=== PATIENT | female | born 1980 | race Caucasian/White ===

== ENCOUNTER 2018-10-03 18:30 | Inpatient (IN) | payer MEDICAID, OTHER ==
[~2018-10-03] VITALS: Ht 165.1 cm; Wt 100.8 kg
[2018-10-03 19:26] LABS: Basophils # (auto) 0.1 uL; Basophils % (auto) 0.6 % (0.0-2.0); Eosinophils # (auto) 0.1 uL; Eosinophils % (auto) 1.4 % (0.0-7.0); Hematocrit 37.7 % (36.0-46.0); Hemoglobin 12.6 g/dL (12.2-16.2); Lymphocytes # (auto) 1.7 uL; Lymphocytes % (auto) 18.9 % (10.0-50.0); Mean Corpuscular Hgb Conc. 33.5 g/dL (32.0-36.0); Mean Corpuscular Volume 89.6 fL (80.0-100.0); Monocytes # (auto) 0.6 uL; Monocytes % (auto) 6.8 % (0.0-12.0); Neutrophils # (auto) 6.6 uL; Neutrophils % (auto) 72.3 % (37.0-80.0); Platelet Count (auto) 353 10^3/uL (140-450); Red Cell Distribution Width 14.1 % (11.8-14.3); White Blood Cell 9.1 10^3/uL (4.4-10.8)
[2018-10-03 19:32] LABS: Urine Bacteria FEW /hpf (None Seen); Urine Blood Negative /uL (Negative); Urine Specific Gravity 1.007 (1.001-1.035); Urine WBC <1 /hpf (0 - 5)
[2018-10-03 19:38] LABS: INR 0.9 (0.9-1.15); Partial Thromboplastin Time 24.1 sec (23.78-33.04); Prothrombin Time 9.7 sec (9.27-12.13)
[2018-10-03 19:42] LABS: Alanine Aminotransferase 28 U/L (13-56); Albumin 3.7 g/dL (3.4-5.0); Anion Gap 3 (5-15); Aspartate Aminotransferase 39 U/L (15-37); BUN/Creatinine Ratio 12.3; Blood Urea Nitrogen 8 mg/dL (7-18); Calcium 8.7 mg/dL (8.5-10.1); Carbon Dioxide 28 mmol/L (21-32); Chloride 103 mmol/L (98-107); GFR African American 130 mL/min; GFR Non-African American 107 mL/min; Glucose 114 mg/dL (74-106); Potassium 3.6 mmol/L (3.5-5.1); Sodium 134 mmol/L (136-145)
[2018-10-03 19:47] LABS: Alkaline Phosphatase 99 U/L (45-117); Bilirubin, Total 0.3 mg/dL (0.2-1.0); Total Protein 7.9 g/dL (6.4-8.2)
[2018-10-03] MEDS ORDERED: HYDROmorphone HCL 2 MG/ML VL IV ONE (21:00)
[2018-10-03] MEDS ORDERED: ONDANSETRON HCL 4 MG/2 ML VIAL IV ONE (21:00)
[2018-10-04] MEDS ORDERED: ONDANSETRON HCL 4 MG/2 ML VIAL IV PRN (01:15)
[2018-10-04] MEDS ORDERED: ACETAMINOPHEN 325 MG TAB PO PRN (01:15)
[2018-10-04 02:28] VITALS: BP 161/88
--- NOTE | 2018-10-04 02:32 | NUR ---
MS admit from ER RADHA AVALOS admitted to tele/MS without report. Patient oriented to Sharmin Martinez, primary RN, unit, room, bed, and unit policies regarding patient care and visiting hours. Patient weighed by bedscale and encouraged to call if they need something. All questions and concerns addressed, patient verbalized understanding. Bed in lowest position and call light is within reach.
[2018-10-04] MEDS: HYDROcodone-ACET 5/325MG TAB PO PRN (03:03)
[2018-10-04 03:19] VITALS: BP 161/88
[2018-10-04 04:52] VITALS: BP 123/83
--- NOTE | 2018-10-04 07:31 | NUR ---
Closing Shift Note: Endorsed care to day nurse. Patient stable at this time. no s/s distress or sob.
--- NOTE | 2018-10-04 08:00 | NUR ---
ASSESSMENT NOTE PT IS ALERT ORIENTED X4, RESTING IN BED COMFORTABLY, NO DISTRESS NOTED, SELF REPOSITION, ABLE TO VERBALIS HER DEMANDS, CALL LIGHT WITHIN REACH.
--- NOTE | 2018-10-04 08:30 | NUR ---
OUT TO RADIOLOGY VIA WHEELCHAIR TO NUCLEAR MED HIDA SCAN, PT IS ALERT ORIENTED X4
[2018-10-04 09:00] VITALS: BP 108/42
--- NOTE | 2018-10-04 09:40 | NUR ---
PT IS BACK TO BED IN ORDER TO GET MORPHINE IV FOR ACHING ABDOMEN PAIN.
[2018-10-04] MEDS: cefTRIAXone 1GM/50ML D5W 50 ML IV SCH (09:50)
[2018-10-04] MEDS: MORPHINE SULFATE 4 MG/ML SYR/VIAL IV PRN ×2 (09:50→19:53)
--- NOTE | 2018-10-04 10:25 | NUR ---
PT IS OUT AGAIN TO RADIOLOGY, NO DISTRESS NOTED.
--- NOTE | 2018-10-04 10:44 | NUR ---
PT IS BACK TO HER ROOM, NO DISTRESS NOTED, PT'S AT BED SIDE.
[2018-10-04] MEDS: FAMOTIDINE 20 MG TAB PO SCH ×2 (12:55→21:41)
[2018-10-04 13:00] VITALS: BP 135/80
--- NOTE | 2018-10-04 13:00 | NUR ---
PT CONTINUE TO HAVE OCCASIONAL EPIGASTRIC ACHING PAIN, DR RAMIREZ AWARE.
[2018-10-04] MEDS ORDERED: SOD CHL 0.9%/ KCL 20MEQ 1,000 ML IV SCH (13:30)
--- NOTE | 2018-10-04 16:00 | NUR ---
PT CONTINUE STABLE, CONTINUE MONITORING.
[2018-10-04 16:53] VITALS: BP 122/66
--- NOTE | 2018-10-04 21:15 | NUR ---
Opening Shift Note Assumed care of patient, awake and alert. No S/S of distress/SOB or pain. Instructed on POC and to call for assist PRN, will continue to monitor for changes Q1hr and PRN.
--- NOTE | 2018-10-04 21:39 | NUR ---
REPORT GIVEN TO GIO HUDSON, CONTINUE MONITORING
--- NOTE | 2018-10-04 22:00 | NUR ---
IV insertion IV access obtained, via clean sterile technique by inserting 22 gauge catheter at left forearm after attempt(s). IV secured properly. No trauma to site. Patient tolerated procedure well.
[2018-10-04] MEDS: SOD CHL 0.9%/ KCL 20MEQ 1,000 ML IV SCH (23:20)
[2018-10-05 06:04] LABS: Basophils # (auto) 0 uL; Basophils % (auto) 0.5 % (0.0-2.0); Eosinophils # (auto) 0.2 uL; Eosinophils % (auto) 2.4 % (0.0-7.0); Hematocrit 34.4 % (36.0-46.0); Hemoglobin 11.9 g/dL (12.2-16.2); Lymphocytes # (auto) 1.8 uL; Lymphocytes % (auto) 22.4 % (10.0-50.0); Mean Corpuscular Hemoglobin 30.9 pg (28.0-32.0); Mean Corpuscular Hgb Conc. 34.6 g/dL (32.0-36.0); Mean Corpuscular Volume 89.4 fL (80.0-100.0); Monocytes # (auto) 0.6 uL; Monocytes % (auto) 7.6 % (0.0-12.0); Neutrophils # (auto) 5.5 uL; Neutrophils % (auto) 67.1 % (37.0-80.0); Platelet Count (auto) 315 10^3/uL (140-450); Red Blood Cells 3.85 10^6/uL (4.0-5.20); Red Cell Distribution Width 13.9 % (11.8-14.3); White Blood Cell 8.2 10^3/uL (4.4-10.8)
--- NOTE | 2018-10-05 07:16 | NUR ---
Report given to Jewell Dahl to assume care, NPO maintained, still to see by Dr. Desai.
--- NOTE | 2018-10-05 07:40 | NUR ---
Opening Shift Note Assumed care of patient. Pt is awake and alert and oriented x4. No S/S of distress/SOB or pain. Safety maintained with bed rails upx2, locked and in lowest position with call ramirez within reach. Instructed on POC and to call for assist PRN, will continue to monitor for changes Q1hr and PRN.
--- NOTE | 2018-10-05 08:10 | NUR ---
Patient was taken to pre-op via bed, no signs of distress noted.
[2018-10-05] MEDS ORDERED: ROCURONIUM 10MG/ML 10ML VIAL IV ONE (08:12)
[2018-10-05] MEDS ORDERED: MIDAZOLAM HCL 1MG/1ML-2 ML VIAL ONE (08:12)
[2018-10-05] MEDS ORDERED: ceFAZolin 1GM/50ML 50 ML IV ONE (08:26)
[2018-10-05] MEDS ORDERED: SUCCINYLCHOLINE CHLORIDE 20 MG/ML 10ML VIAL IV ONE (08:40)
[2018-10-05] MEDS ORDERED: LIDOCAINE 1% (LOCAL ANESTH.) PF 5ml SDV ONE (08:41)
[2018-10-05] MEDS ORDERED: METOCLOPRAMIDE HCL 5MG/ml INJ 2ml VIAL ONE (08:52)
[2018-10-05] MEDS ORDERED: PROPOFOL 10 MG/ML 20 ML IV ONE (08:54)
[2018-10-05 09:00] VITALS: BP 125/71
[2018-10-05] MEDS: cefTRIAXone 1GM/50ML D5W 50 ML IV SCH (09:00)
[2018-10-05] MEDS ORDERED: fentaNYL CITRATE 100 MCG/2 ML VL ONE (09:05)
[2018-10-05] MEDS ORDERED: NALOXONE HCL 0.4 MG/ML VIAL IV PRN (09:15)
[2018-10-05] MEDS ORDERED: HYDROmorphone HCL 2 MG/ML VL IV PRN ×3 (09:15→10:45)
[2018-10-05] MEDS ORDERED: ONDANSETRON HCL 4 MG/2 ML VIAL IV ONE (09:15)
[2018-10-05] MEDS ORDERED: KETOROLAC TROMETH 30 MG/ML 1ML VIAL ONE (09:19)
[2018-10-05] MEDS ORDERED: DexAMETHasone SOD PHOS 10MG/1ML VIAL INJ ONE (09:19)
[2018-10-05] MEDS ORDERED: NEOSTIGMINE 1 MG/ML INJ (10mg/10ML VIAL) ONE (09:42)
[2018-10-05] MEDS ORDERED: GLYCOPYRROLATE 0.2 MG/ML 1ML VIAL ONE (09:42)
[2018-10-05] MEDS: FAMOTIDINE 20 MG TAB PO SCH ×2 (10:00→21:33)
[2018-10-05] MEDS ORDERED: ONDANSETRON HCL 4 MG/2 ML VIAL IV PRN (10:45)
--- NOTE | 2018-10-05 10:52 | NUR ---
Patient is back in the unit. No signs of distress noted.
[2018-10-05] MEDS: SOD CHL 0.9%/ KCL 20MEQ 1,000 ML IV SCH ×2 (10:55→18:00)
[2018-10-05 13:00] VITALS: BP 120/71
--- NOTE | 2018-10-05 13:00 | NUR ---
JAMIE drain output 50 ml sanguinous fluid
--- NOTE | 2018-10-05 14:00 | NUR ---
Patient walked back and forth to the bathroom with standby assist. Patient tolerated well.
[2018-10-05] MEDS: ceFAZolin 1GM/50ML 50 ML IV SCH ×2 (14:15→21:33)
--- NOTE | 2018-10-05 16:31 | NUR ---
Patient walked to the bathroom independently. Patient tolerated well.
[2018-10-05 17:00] VITALS: BP 117/71
--- NOTE | 2018-10-05 17:15 | NUR ---
JAMIE drain output 50 ml sanguinous fluid.
[2018-10-05] MEDS: HYDROcodone-ACET 5/325MG TAB PO PRN (18:52)
--- NOTE | 2018-10-05 19:10 | NUR ---
Closing note Patient resting in bed, no signs of distress noted.
--- NOTE | 2018-10-05 19:26 | NUR ---
Opening Shift Note Received report from BECCA Dahl and assumed care of patient, awake and alert. No S/S of distress/SOB or pain. Instructed patient to call for assist if needed and verbalized understanding. Will continue to monitor .
--- NOTE | 2018-10-05 21:00 | NUR ---
Ambulation: Patient OOB independently. Patient ambulated to bathroom with steady gait. Patient able to void without difficulty. Patient ambulated back to bed with steady gait and no distress noted.
[2018-10-05 22:00] VITALS: BP 149/91
--- NOTE | 2018-10-06 02:00 | NUR ---
IS provided and educate the patient how to use it .Patient verbalized understanding.
--- NOTE | 2018-10-06 02:25 | NUR ---
IV insertion IV access obtained, via clean sterile technique by inserting 22 gauge catheter at L hand after 2 attempt(s). IV secured properly. No trauma to site. Patient tolerated procedure well.
[2018-10-06] MEDS: HYDROcodone-ACET 5/325MG TAB PO PRN ×2 (02:32→11:50)
--- NOTE | 2018-10-06 02:35 | NUR ---
IV removal IV in the L forearm is leaking. IV dc'd with sterile technique, catheter fully intact. Pressure dressing applied to site. Patient tolerated procedure well.
[2018-10-06 05:00] VITALS: BP 151/81
[2018-10-06] MEDS: ceFAZolin 1GM/50ML 50 ML IV SCH ×2 (05:59→14:00)
[2018-10-06] MEDS: SOD CHL 0.9%/ KCL 20MEQ 1,000 ML IV SCH ×2 (05:59→14:00)
--- NOTE | 2018-10-06 06:54 | NUR ---
JAMIE drain output is 50 ML.
[2018-10-06] MEDS ORDERED: PANTOPRAZOLE 40 MG/10 ML VIAL IV ONE (10:00)
[2018-10-06] MEDS: FAMOTIDINE 20 MG TAB PO SCH (10:48)
--- NOTE | 2018-10-06 15:00 | NUR ---
JAMIE DRAIN OUTPUT 50 ML SANGUINOUS FLUID.
--- NOTE | 2018-10-06 15:50 | NUR ---
Discharge instructions given as ordered. Encourage to follow up with Dr. Desai, surgeon and PMD as instructed. Patient returned demonstrated to empty JAMIE drain. All questions and concerns addressed. Patient verbalized understanding. Medication reconciliation form completed and copy given to patient. IV removed with catheter intact, pressure dressing applied. Patient taken to vehicle via wheelchair with all personal belongings, accompanied by staff and family member. No distress noted at time of departure.
== END 2018-10-06 15:50 | disposition home or self-care (01) | DRG 263 ==
LOC: EDBD 18:30 → ER 18:30 → OVERFLOW 10-04 01:07 → EAST 10-04 02:28
PROVIDERS: ADMIT Nurse Practitioner; ATTEND Internal Medicine
PROC: 0FT44ZZ Resection of Gallbladder, Percutaneous Endoscopic Approach (ICD-10-PCS; principal; 2018-10-05 08:51)
DX: K80.00 Calculus of gallbladder with acute cholecystitis without obstruction (principal); E66.01 Morbid (severe) obesity due to excess calories; K76.0 Fatty (change of) liver, not elsewhere classified; Z68.37 Body mass index [BMI] 37.0-37.9, adult
CPT/HCPCS: 36415; 71046; 76705; 78226; 80053; 81001; 81025; 82247; 83690; 84484; 84702; 85025; 85610; 85730; 86850; 86900; 86901; 93005; 96374; 96375; A6257; G0378; J0330; J0690; J0696; J1100; J1885; J2250; J2405; J2704